=== PATIENT | female | born 1960 ===

== ENCOUNTER 2021-03-12 13:46 | Outpatient (CLI) | payer BC, SELFPAY ==
[2021-03-12 17:06] LABS: Creatinine Urine 77.7 mg/dL
[2021-03-12 17:07] LABS: Anion Gap 4 mmol/L (8-16); Blood Urea Nitrogen 15 mg/dL (7-17); Calcium 9.2 mg/dL (8.4-10.2); Carbon Dioxide 26 mmol/L (22-30); Chloride 103 mmol/L (98-107); Estimated Glomerular Filt Rate > 60; Glucose 123 mg/dL (65-110); HDL Direct 44 mg/dL; Potassium 4.2 mmol/L (3.4-5.0); Sodium 133 mmol/L (137-145)
[2021-03-12 17:11] LABS: MALB Creatinine Ratio 69.1 mg/g (0-30); Microalbumin Urine Random 53.7 mg/L (0-16.7)
[2021-03-12 17:18] LABS: LDL Cholesterol Direct 106 mg/dL
[2021-03-12 17:20] LABS: Free T4 Free Thyroxine 0.66 ng/mL (0.78-2.19)
[2021-03-16 06:40] LABS: Triiodothyronine T3 Free 2.2 pg/mL (2.3-4.2)
== END 2021-03-12 13:47 | disposition home or self-care (01) ==
LOC: ANHWCLAB 13:51
PROVIDERS: Referring Provider Internal Medicine Endocrinology, Diabetes & Metabolism; Visit Provider Internal Medicine Endocrinology, Diabetes & Metabolism
DX: E05.90 Thyrotoxicosis, unspecified without thyrotoxic crisis or storm (principal); E04.9 Nontoxic goiter, unspecified; E11.65 Type 2 diabetes mellitus with hyperglycemia
CPT/HCPCS: 36415; 80048; 82043; 83718; 83721; 84439; 84443; 84481